=== PATIENT | female | born 1955 | race Caucasian/White ===

== ENCOUNTER 2017-04-12 15:38 | Emergency (ER) | payer SELFPAY ==
--- NOTE | 2017-04-12 17:10 | NUR ---
CALLED PT FOR TRIAGE ASSESSMENT, NO ANSWER.
--- NOTE | 2017-04-12 17:30 | NUR ---
PATIENT LEFT WITHOUT BEING SEEN BY DR. GERONIMO. NO FURTHER CARE PROVIDED FOR PATIENT.
== END 2017-04-12 17:30 | disposition left against medical advice (07) ==
LOC: MED 15:38
DX: M54.9 Dorsalgia, unspecified (principal); Z53.21 Procedure and treatment not carried out due to patient leaving prior to being seen by health care provider